=== PATIENT | female | born 1980 | race Two or more races ===

== ENCOUNTER → 2017-04-06 | Emergency (ER) | payer OTHER ==
[~2017-04-06] VITALS: Ht 152.4 cm; Wt 44.0 kg
[~2017-04-06] MED LIST: INTESTINEX1 CA1 PO; NA; PEPCID20 MG PO; PROTONIX40 MG PO
== END | disposition home or self-care (01) ==
LOC: ER 13:47
DX: K52.9 Noninfective gastroenteritis and colitis, unspecified (principal)